=== PATIENT | female | born 1990 | race Caucasian/White ===

== ENCOUNTER 2017-06-18 21:01 | Inpatient (IN) ==
[2017-06-18] MEDS ORDERED: CARBOPROST 250 MCG/ML INJECTION IM PRN (21:20)
[2017-06-18] MEDS ORDERED: LIDOCAINE 1% (10mg/ml) 2mL INJ PF SDV ID PRN (21:20)
[2017-06-18] MEDS ORDERED: ACETAMINOPHEN 500 MG TABLET PO PRN (21:20)
[2017-06-18] MEDS ORDERED: METHYLERGONOVINE 0.2 MG/ML INJECTION IM PRN (21:20)
[2017-06-18] MEDS ORDERED: MAG-AL + SIM ORAL LIQUID 30ml PO PRN (21:20)
[2017-06-18] MEDS ORDERED: CALCIUM CARBONATE Chewable 500mg TABLET PO PRN (21:20)
[2017-06-18] MEDS: LR 1,000 ML IV PRN ×2 (21:27→22:23)
[2017-06-18 21:28] VITALS: BMI 33.3
[2017-06-18] MEDS ORDERED: D5LR 1,000 ML IV SCH (21:30)
[2017-06-18] MEDS ORDERED: NALOXONE 0.4 MG/ML INJECTION IVP PRN (22:29)
[2017-06-18] MEDS ORDERED: ROPIVACAINE 1% 10MG/ML INJ 200 MG, SUFentanil 50 MCG in NS 100 ML EPI PRN (22:29)
[2017-06-18] MEDS ORDERED: DiphenhydrAMINE 50 MG/ML INJECTION IVP PRN (22:29)
[2017-06-18] MEDS ORDERED: ONDANSETRON 4 MG/2 ML INJECTION IVP PRN (22:29)
--- NOTE | 2017-06-18 22:29 | Anesthesia Preoperative Report ---
Anesthesia Epidural/Spinal Rec - Date and Time Date: 06/18/17 Procedure: Labor Epidural Plan: Epidural - Vital Signs /Para: P:1 - Medictaions & Allergies Inpatient Medications: Current Medications Acetaminophen (Tylenol) 500 - 1,000 mg PO Q4H PRN PRN Reason: Pain Al Hydroxide/Mg Hydroxide (Maalox Plus) 30 ml PO Q3H PRN PRN Reason: Indigestion Calcium Carbonate (Tums) 500 - 1,000 mg PO Q2H PRN PRN Reason: Indigestion Carboprost Tromethamine (Hemabate) 250 mcg IM O PRN PRN Reason: .Downtime Dextrose/Lactated Ringer's (Dextrose 5%-Lactated Ringers) 1,000 mls @ 125 mls/ hr IV .Q8H ROBERT Lactated Ringer's (Lactated Ringers) 1,000 mls @ 999 mls/hr IV .Q1H1M PRN Last Admin: 06/18/17 22:23 Dose: 999 mls/hr Lidocaine HCl (Xylocaine-Mpf 1% Vial) 0.2 mg ID O PRN PRN Reason: IV Start Methylergonovine Maleate (Methergine) 0.2 mg IM O PRN Misoprostol (Cytotec) 800 mcg HI ONCE PRN Allergies/Adverse Reactions: Allergies Allergy/AdvReac Type Severity Reaction Status Date / Time No Known Allergies Allergy Unverified 06/18/17 21:43 - Home Medications Home Medications: Home Medications Medication Instructions Recorded Confirmed Type Pnv95/Ferrous Fumarate/FA 1 tab PO DAILY #0 tab 04/29/15 History [ Tablet] Prilosec DAILY 05/30/17 History - Medical History Respiratory: DENIES: Asthma, Bronchitis, Chronic Obstructive Pulmonary Disease (COPD), Dyspnea, Orthopnea, Pulmonary Embolism, Pneumonia, Upper Respiratory Infection, Pulmonary Edema, Sleep Apnea, Tuberculosis, Other Cardiovascular: DENIES: Abnormal EKG, Angina, Arrhythmia, Congestive Heart Failure, Coronary Artery Disease, Heart Murmur, Hypertension, Hypotension, High Cholesterol, Myocardial Infarction, Rheumatic Fever, Valvular Heart Disease, Other Gastrointestional: Reports: Gastroesophageal Reflux Disease (with . takes meds daily) Neuro/Musculoskeletal: Denies: Back Problems, Cerebrovascular Accident, Depression, Headaches, Loss of Consciousness, Muscle Weakness, Neuromuscular Disorder, Paralysis, Paresthesia, Syncope, Seizures, Other Renal/Endocrine: DENIES: Diabetes Mellitus Type 1, Diabetes Mellitus Type 2, Renal Failure, Dialysis, Thyroid Disease, Weight Loss, Weight Gain, Other Other History: Reports: Now - Surgical History HEENT Surgeries: Reports: Oral Surgery (wisdom teeth removed) Reproductive Surgery/Treatment: DENIES: Section Anesthesia Reactions: None (pt has had no GA ) Hx Family Anesthesia Reaction: No History of Motion Sickness: No - Social History Smoking Status: Former smoker Substance Use Type: does not use - Pertinent Findings Lab Data: CBC and BMP 06/18/17 21:26 - Physical Exam Respiratory Exam: lungs clear, bilateral breath sounds equal Cardiovascular Exam: regular rate and rhythm, no murmur - Airway Assessment Mallampati Score: I TMD: 3 Fingerbreadths Neck Extension: good Overall Assessment: may be difficult intubation - ASA ASA Score: 2 - Discussion Discussion: Discussed risks/options/alternatives of anesthesia and questions answered. Patient consents. Nursing pain assessment noted. Anesthesia Discussion: spouse Attestation Statement: Prior to the delivery of any anesthetic medication, I examined the patient, developed the plan, obtained the patient's consent and discussed the risk and benefits of the procedure with the patient/guardian.
[2017-06-18] MEDS ORDERED: OXYTOCIN DRIP 30 UNIT/500 ML ML IV PRN (23:28)
[2017-06-19] MEDS ORDERED: DiphenhydrAMINE 25 MG CAPSULE PO PRN (00:54)
[2017-06-19] MEDS ORDERED: CALCIUM CARBONATE Chewable 500mg TABLET PO PRN (00:54)
[2017-06-19] MEDS ORDERED: HYDROCORTISONE 2.5% CREAM 30gm RECTALLY PRN (00:54)
[2017-06-19] MEDS ORDERED: ACETAMINOPHEN 500 MG TABLET PO PRN (00:54)
[2017-06-19] MEDS ORDERED: HYDROCODONE/APAP 5mg/325mg TABLET PO PRN (00:54)
[2017-06-19] MEDS ORDERED: MAG-AL + SIM ORAL LIQUID 30ml PO PRN (00:54)
[2017-06-19] MEDS: OXYTOCIN DRIP 30 UNIT/500 ML ML IV SCH ×3 (03:36→12:51)
[2017-06-19] MEDS: IBUPROFEN 800 MG TABLET PO PRN ×2 (04:44→14:13)
[2017-06-19] MEDS: DOCUSATE CALCIUM 240 MG CAPSULE PO SCH (10:25)
--- NOTE | 2017-06-19 12:40 | OB/GYN Progress Note ---
OB-PP Progress Note - General PPD0 - Subjective Date: 06/19/17 Lochia: Minimal Pain: controlled Voiding: voiding Nausea or Vomiting Present: No - Objective Vital Signs: Last Vital Signs Temp 98.5 F 06/19/17 08:15 Pulse 74 06/19/17 08:15 Resp 16 06/19/17 08:15 BP 120/64 06/19/17 08:15 Pulse Ox 98 06/19/17 08:15 Urine Output: good General: alert and oriented Laboratory: Laboratory Results - last 24 hr 06/18/17 21:26 WBC 10.5 RBC 3.97 L Hgb 12.4 Hct 37.5 MCV 94.5 MCH 31.2 MCHC 33.1 RDW Std Deviation 44.7 Plt Count 194 MPV 11.5 - Assessment Assessment: SP, JORDANA - Plan Plan: routine care
--- NOTE | 2017-06-19 13:15 | Labor and Delivery Note ---
DATE OF DELIVERY:06/18/2017 DIAGNOSES 1. 26-year-old white female, G2, P1 at 39.1 weeks gestational age. 2. Spontaneous labor. 3. Epidural anesthesia. 4. Artificial rupture of membranes. 5. Light meconium-stained amniotic fluid. 6. Pitocin augmentation to 2 milliunits a minute. 7. Spontaneous vaginal delivery. 8. Male 8/9 Apgars, 3065 grams (Juvencio Plascencia). 9. Nuchal cord x1 - loose. 10. Left periurethral laceration - not repaired. DESCRIPTION This is a patient of Dr. Vega who was scheduled for logistics induction tomorrow. She came in this evening complaining of contractions. Her cervix was 4 cm dilated, so we admitted her. She underwent an epidural block and changed to 6 cm. I performed artificial rupture of membranes and very light meconium-stained fluid was noted. She was rosa very irregularly so I had them start Pitocin augmentation but she only turned it on to 2 milliunits for a couple of minutes and then there was a 6-minute late deceleration so Pitocin was turned off and cervix was checked and she was now 9 cm and OA presentation. So I waited and heart tones recovered with IV fluid and position changes and I let her get to complete dilation and we began pushing. She pushed with two contractions and had a spontaneous vaginal delivery from the OA position. Infant was DeLee suctioned after delivery of the head and then bulb suctioned after delivery of the body. There was a loose nuchal cord x1 that was delivered through. The perineum was intact. Cord was allowed to drain for about a minute and a half and then I doubly clamped the cord when it had collapsed and the 's father cut the cord. Infant initially went to the mother's abdomen. There was a very small left periurethral laceration that was not bleeding and was not repaired. EBL was 250. GBS was negative. Rubella is immune and maternal blood type is AB positive. At the time of dictation, mother and infant are doing well. [facility]
[2017-06-19 18:05] VITALS: RESP 16
[2017-06-20] MEDS: OXYTOCIN DRIP 30 UNIT/500 ML ML IV SCH (00:37)
[2017-06-20] MEDS: IBUPROFEN 800 MG TABLET PO PRN ×2 (00:39→15:23)
--- NOTE | 2017-06-20 08:14 | Anesthesia Postoperative Note ---
- Date and Time Date: 06/20/17 Time: 08:12 - Status Patient Participated in Evaluation: Patient Participated in Person Vital Signs: Temperature 97.9 F 06/20/17 00:30 Pulse Rate 72 06/20/17 00:30 Respiratory Rate 16 06/20/17 00:30 Blood Pressure 107/62 06/20/17 00:30 Pulse Oximetry 99 06/20/17 00:30 Respiratory Function: Airway Patent, Regular Respirations Cardiovascular Function: Regular Pulse Mental Status: Alert and Oriented Pain Intensity: 0 Hydration: Taking PO Fluids Complications During Recover: None Apparent Post Anesthesia Care Notes: ambulating without problems - Follow-Up Instructions Instructions: Per Surgeon
[2017-06-20] MEDS: DOCUSATE CALCIUM 240 MG CAPSULE PO SCH (09:08)
[2017-06-20 09:42] VITALS: TEMP 98.1
[2017-06-20 16:40] VITALS: BP 117/65; PULSE 74; O2SAT 99
== END 2017-06-20 16:10 | disposition home or self-care (01) | DRG 775 ==
LOC: OBOBS 21:01 → MC 21:04
PROVIDERS: ADMIT Obstetrics & Gynecology; ATTEND Obstetrics & Gynecology